=== PATIENT | female | born 1960 | race Caucasian/White ===

== ENCOUNTER → 2017-03-20 | Day surgery (SDC) | payer OTHER ==
--- NOTE | 2017-03-22 10:28 | PATH ---
Cytology Non-Gynecological Report Patient Name: JIMENA ANAYA [facility]. Rec. #: [id number] /Age/Gender: 1960 (Age: 56) / F Account: [id number] Location: RADIOLOGY Taken: 03/20/2017 Received: 03/20/2017 Reported: 03/22/2017 Physicians: Michael Mathis M.D. Specimen(s) Received RIGHT THYROID FNA Clinical History Right thyroid nodule, 7.12 x 4.75 x 6.38 cm Final Diagnosis THYROID GLAND, RIGHT LOBE, US GUIDED FINE NEEDLE ASPIRATION BIOPSY: SATISFACTORY FOR EVALUATION. NO MALIGNANT CELLS IDENTIFIED. SCATTERED CLUSTERS OF BLAND APPEARING FOLLICULAR EPITHELIAL CELLS, MACROPHAGES AND COLLOID, CONSISTENT WITH NODULAR GOITER WITH CYSTIC CHANGE (BENIGN FOLLICULAR NODULE, B[place]ESDA CATEGORY II, BENIGN), SEE COMMENT. Comment: The smears and cell blocks show scattered clusters of bland appearing follicular epithelial cells; some cells show Hurthle cell (oncocytic) change. Numerous macrophages are present indicative of cystic change. Colloid is present. Electronically Signed Gavin Yepez M.D. Gross Description Received are four air dried smears, four smears in 95% alcohol, and 20 cc of bloody fluid in formalin. Four diff-quik stained slides, four Pap stained slides and one cell block are made.
== END | disposition home or self-care (01) ==
LOC: JRADIR 09:38
PROVIDERS: ATTEND Internal Medicine Endocrinology, Diabetes & Metabolism
PROC: 0G9H3ZX Drainage of Right Thyroid Gland Lobe, Percutaneous Approach, Diagnostic (ICD-10-PCS; principal; 2017-03-20)
PROC: BG44ZZZ Ultrasonography of Thyroid Gland (ICD-10-PCS; 2017-03-20)
DX: E04.1 Nontoxic single thyroid nodule (principal)
CPT/HCPCS: 76942; 88173; 88305-TC

== ENCOUNTER 2018-06-14 07:13 | Day surgery (SDC) | payer OTHER ==
[2018-06-14 07:50] VITALS: BMI 27.4
[2018-06-14 10:01] VITALS: TEMP 97.5
[2018-06-14 10:49] VITALS: BP 126/81; PULSE 62
== END 2018-06-14 11:15 | disposition home or self-care (01) ==
LOC: JASU-ENDO 07:13
PROVIDERS: ATTEND Internal Medicine Gastroenterology
PROC: 0DJD8ZZ Inspection of Lower Intestinal Tract, Via Natural or Artificial Opening Endoscopic (ICD-10-PCS; principal; 2018-06-14 11:30)
DX: Z12.11 Encounter for screening for malignant neoplasm of colon (principal); K63.5 Polyp of colon

== ENCOUNTER → 2024-09-18 | Day surgery (SDC) | payer MEDICARE, OTHER | END | disposition home or self-care (01) | LOC: JRADUS-SUR 09:10 | PROVIDERS: ATTEND Nurse Practitioner | PROC: 0H9U3ZX Drainage of Left Breast, Percutaneous Approach, Diagnostic (ICD-10-PCS; principal; 2024-09-18) | DX: N60.02 Solitary cyst of left breast (principal) | CPT/HCPCS: 19000; 76942-TC; 77065-TC; 88173; 88305-TC; A4648 ==